=== PATIENT | female | born 1970 | race Caucasian/White ===

== ENCOUNTER → 2018-02-01 10:20 | Outpatient (CLI) | payer OTHER, SELFPAY ==
--- NOTE | 2018-02-01 | MASS_PTH ---
PATIENT: BILL MCRAE LOC: [facility] U#:[id number] AGE/SX: 54/F ROOM: RE02/01/[address]: Dr. Lupe Ramsay MD : [id number] BED: DIS: SPEC #: [id number] RECD: 02/01/18 12:10 STATUS: XIOMARA MELINDA #: [id number] ANTONELLA: 02/01/18 00:[address]: Lupe Ramsay DEPT: SURGICAL PATHOLOGY RECD BY: Vivi Mckenzie Tissues: Neck, NOS Procedures: Frozen Section (charge) Special Stain Group I Surgery Specimen Level IV AFB Stain (control) GMS Stain (control) Frozen (no charge) HEADER OPERATION: Ultrasound-guided needle core biopsy of posterior neck mass PRE-OP DIAGNOSIS: Posterior neck mass TISSUE SUBMITTED: A - Posterior neck mass needle core biopsy for FS, B - Posterior neck needle core biopsy, permanent FROZEN SECTION DIAGNOSIS A. Posterior neck mass, core biopsy: Acute inflammation. Negative for malignancy. SJ:tiffanie 02/01/18 MICROSCOPIC DIAGNOSIS A. Posterior neck mass, core biopsy: Acute inflammation and negative for malignancy. B. Posterior neck mass, for permanent, needle core biopsy: Fragment of fibroadipose and fibroconnective tissue with acute and chronic inflammation. Special stains for acid fast bacilli and fungi are negative for organisms; matched controls are appropriate. HECTOR:tiffanie 02/04/18 COMMENT Correlation with clinical findings and appropriate follow up are necessary. MICROSCOPIC DESCRIPTION Slides are reviewed. GROSS DESCRIPTION A - Received fresh for frozen section diagnosis labeled with the patient's name is a specimen designated posterior neck mass, biopsy for frozen section. The specimen consists of two pieces of vogel-brown soft tissue that measure 1 x 0.5 x 0.2 cm. The entire specimen is submitted for frozen section diagnosis in one cassette. B - Received in fixative is one container labeled with the patient's name and designated posterior neck mass needle core biopsy for permanent. The specimen consists of multiple irregular fragments of vogel soft tissue that in aggregate measure 1 x 0.5 x 0.1 cm. The specimen is totally submitted in one cassette. / HECTOR:tiffanie 02/01/18 TC:2 CPT: 23012 x2, 24952 x2, 57161
== END ==
LOC: LABSPEC 11:48
PROVIDERS: Referring Provider Surgery; Visit Provider Surgery
DX: R22.1 Localized swelling, mass and lump, neck (principal)
CPT/HCPCS: 88305; 88312; 88331